=== PATIENT | female | born 1960 | race Caucasian/White ===

== ENCOUNTER 2018-08-16 20:40 | Emergency (ER) | payer OTHER ==
[~2018-08-16] VITALS: Ht 170.2 cm; Wt 72.6 kg
[2018-08-16] MEDS ORDERED: OMEPRAZOLE40 MG PO (21:10)
[2018-08-16] MEDS ORDERED: CENTURY TABLET1 EACH PO (21:11)
[2018-08-16] MEDS ORDERED: VITAMIN D3400 UNIT PO (21:11)
[2018-08-16] MEDS ORDERED: TURMERIC500 M2 PO (21:11)
[2018-08-16] MEDS ORDERED: XANAX 0.5 MG0.5 MG PO (21:13)
[2018-08-16] MEDS ORDERED: TRAMADOL 50 MG50 MG PO (22:33)
[2018-08-16] MEDS ORDERED: KEFLEX500 M1 PO (22:33)
[2018-08-16 22:44] VITALS: BP 116/71
== END 2018-08-16 22:45 | disposition home or self-care (01) ==
LOC: ER 20:40
DX: S01.512A Laceration without foreign body of oral cavity, initial encounter (principal); F41.9 Anxiety disorder, unspecified; X58.XXXA Exposure to other specified factors, initial encounter; Y93.89 Activity, other specified; Y92.89 Other specified places as the place of occurrence of the external cause; Y99.8 Other external cause status

== ENCOUNTER 2020-06-06 21:30 | Emergency (ER) | payer OTHER ==
[~2020-06-06] VITALS: Ht 170.2 cm; Wt 69.8 kg
[~2020-06-06 21:30] MED LIST: CENTURY TABLET1 EACH PO; KEFLEX500 M1 PO; OMEPRAZOLE40 MG PO; TRAMADOL 50 MG50 MG PO; TURMERIC500 M2 PO; VITAMIN D3400 UNIT PO; XANAX 0.5 MG0.5 MG PO
[2020-06-06] MEDS ORDERED: PERCOCET 5-3251 EACH PO (23:59)
[2020-06-07] MEDS ORDERED: IBU600 MG PO (00:04)
[2020-06-07 01:10] VITALS: BP 176/95
== END 2020-06-07 01:10 | disposition home or self-care (01) ==
LOC: ER 21:30
DX: S52.531A Colles' fracture of right radius, initial encounter for closed fracture (principal); S52.611A Displaced fracture of right ulna styloid process, initial encounter for closed fracture; F41.9 Anxiety disorder, unspecified; Z79.899 Other long term (current) drug therapy; W18.39XA Other fall on same level, initial encounter; Y93.89 Activity, other specified; Y92.89 Other specified places as the place of occurrence of the external cause; Y99.8 Other external cause status